=== PATIENT | male | born 1975 | race Caucasian/White ===

== ENCOUNTER 2020-01-14 20:17 | Emergency (ER) | payer OTHER, MEDICAID ==
[~2020-01-14] VITALS: Ht 182.9 cm; Wt 90.3 kg
[2020-01-14 20:28] VITALS: Ht 182.9 cm; Wt 90.3 kg
[2020-01-14 21:57] VITALS: BP 127/75
== END 2020-01-14 21:57 | disposition home or self-care (01) ==
LOC: ED 20:17
DX: K08.89 Other specified disorders of teeth and supporting structures (principal); R03.0 Elevated blood-pressure reading, without diagnosis of hypertension; E11.9 Type 2 diabetes mellitus without complications
CPT/HCPCS: J1885; Q0162

== ENCOUNTER 2020-04-05 18:42 | Emergency (ER) | payer OTHER, MEDICAID ==
[~2020-04-05] VITALS: Ht 180.3 cm; Wt 88.5 kg
[2020-04-05 18:49] VITALS: Ht 180.3 cm; Wt 88.5 kg
[2020-04-05 19:36] VITALS: BP 123/84
== END 2020-04-05 19:36 | disposition home or self-care (01) ==
LOC: ED 18:42
DX: S10.96XA Insect bite of unspecified part of neck, initial encounter (principal); E11.9 Type 2 diabetes mellitus without complications; Z76.0 Encounter for issue of repeat prescription; W57.XXXA Bitten or stung by nonvenomous insect and other nonvenomous arthropods, initial encounter; Y93.89 Activity, other specified; Y92.89 Other specified places as the place of occurrence of the external cause; Y99.8 Other external cause status

== ENCOUNTER 2020-04-09 14:01 | Emergency (ER) | payer OTHER, MEDICAID ==
[~2020-04-09] VITALS: Ht 180.3 cm; Wt 82.1 kg
[2020-04-09 14:10] VITALS: Ht 180.3 cm; Wt 82.1 kg
[2020-04-09 15:17] LABS: BASOPHIL % 0.5 % (0-2); PLATELET COUNT 318 x10^3mcL (130-400); RED CELL DISTRIBUTION WIDTH 13.6 % (11.5-14.5)
[2020-04-09 15:23] LABS: CALCIUM 9.1 mg/dL (8.5-10.1); CARBON DIOXIDE 23.1 mmol/L (21-32); CHLORIDE SERUM 99 mmol/L (98-107); CREATININE SERUM 0.8 mg/dL (0.7-1.3); GFR1 > 60 mL/min; GLUCOSE SERUM 240 mg/dL (74-106); POTASSIUM SERUM 3.6 mmol/L (3.5-5.1); SODIUM SERUM 134 mmol/L (136-145)
[2020-04-09 15:28] LABS: ALBUMIN 3.5 g/dL (3.4-5.0); ALKALINE PHOSPHATASE 122 U/L (46-116); ALT/SGPT 30 U/L (16-63); AST/SGOT 13 U/L (15-37); BILIRUBIN TOTAL 0.5 mg/dL (0.20-1.00); TOTAL PROTEIN, SERUM 7.9 g/dL (6.4-8.2)
[2020-04-09 15:47] LABS: AMPHETAMINE QUAL UR NONE DETECTED (See below)
[2020-04-09 16:58] VITALS: BP 108/69
== END 2020-04-09 16:58 | disposition home or self-care (01) ==
LOC: ED 14:01
PROVIDERS: Emergency Medicine
DX: E11.65 Type 2 diabetes mellitus with hyperglycemia (principal)
CPT/HCPCS: J0696; Q0092

== ENCOUNTER 2020-06-26 17:27 | Emergency (ER) | payer OTHER, MEDICAID ==
[~2020-06-26] VITALS: Ht 182.9 cm; Wt 87.1 kg
[2020-06-26 17:49] VITALS: Ht 182.9 cm; Wt 87.1 kg
[2020-06-26 18:32] VITALS: BP 134/90
== END 2020-06-26 18:32 | disposition home or self-care (01) ==
LOC: ED 17:27
DX: K08.89 Other specified disorders of teeth and supporting structures (principal); E11.9 Type 2 diabetes mellitus without complications; F17.210 Nicotine dependence, cigarettes, uncomplicated